=== PATIENT | female | born 1995 | race Caucasian/White ===

== ENCOUNTER → 2018-01-26 10:00 | Outpatient (CLI) | payer OTHER | END | disposition home or self-care (01) | LOC: RAD 10:00 | DX: M54.5 Low back pain (principal) ==

== ENCOUNTER 2018-02-09 08:53 | Outpatient (CLI) | payer OTHER | END 2018-02-09 19:03 | disposition home or self-care (01) | LOC: LAB 08:53 | DX: R73.09 Other abnormal glucose (principal); R10.84 Generalized abdominal pain; E03.8 Other specified hypothyroidism ==

== ENCOUNTER 2019-03-12 09:27 | Outpatient (CLI) | payer OTHER | END 2019-03-12 09:32 | disposition home or self-care (01) | LOC: LAB 09:27 | DX: J11.1 Influenza due to unidentified influenza virus with other respiratory manifestations (principal) ==

== ENCOUNTER 2020-06-06 10:40 | Outpatient (CLI) | payer OTHER | END 2020-06-06 15:00 | disposition home or self-care (01) | LOC: LAB 10:40 | PROVIDERS: ATTEND Internal Medicine Cardiovascular Disease | DX: E78.2 Mixed hyperlipidemia (principal); I10 Essential (primary) hypertension; E11.9 Type 2 diabetes mellitus without complications; E03.8 Other specified hypothyroidism ==

== ENCOUNTER 2020-07-20 13:31 | Outpatient (CLI) | payer OTHER | END 2020-07-20 13:33 | disposition home or self-care (01) | LOC: LAB 13:31 | PROVIDERS: ATTEND Internal Medicine Cardiovascular Disease | DX: R05 Cough (principal); R06.2 Wheezing; R50.9 Fever, unspecified ==

== ENCOUNTER 2021-03-11 08:00 | Outpatient (CLI) | payer OTHER | END 2021-03-11 08:30 | disposition home or self-care (01) | LOC: PPH VACUNA 08:00 | PROVIDERS: ATTEND Emergency Medicine Pediatric Emergency Medicine | DX: Z23 Encounter for immunization (principal) ==

== ENCOUNTER 2022-03-16 08:36 | Outpatient (CLI) | payer OTHER | END 2022-03-16 09:45 | disposition home or self-care (01) | LOC: PRENATAL 08:36 | PROVIDERS: ATTEND Obstetrics & Gynecology Maternal & Fetal Medicine | DX: Z76.1 Encounter for health supervision and care of foundling (principal) ==

== ENCOUNTER 2022-05-02 07:01 | Outpatient (CLI) | payer OTHER | END 2022-05-02 07:13 | disposition home or self-care (01) | LOC: LAB 07:01 | PROVIDERS: ATTEND Obstetrics & Gynecology | DX: O09.72 Supervision of high risk pregnancy due to social problems, second trimester (principal); E11.9 Type 2 diabetes mellitus without complications ==

== ENCOUNTER → 2022-05-18 06:05 | Outpatient (CLI) | payer OTHER | END | disposition home or self-care (01) | LOC: LAB 06:05 | PROVIDERS: ATTEND Obstetrics & Gynecology | DX: Z34.83 Encounter for supervision of other normal pregnancy, third trimester (principal) ==

== ENCOUNTER 2022-06-17 06:53 | Outpatient (CLI) | payer OTHER | END 2022-06-17 06:54 | disposition home or self-care (01) | LOC: LAB 06:53 | PROVIDERS: ATTEND Obstetrics & Gynecology Maternal & Fetal Medicine | DX: Z34.82 Encounter for supervision of other normal pregnancy, second trimester (principal) ==

== ENCOUNTER 2022-07-19 16:11 | Outpatient (CLI) | payer OTHER | END 2022-07-19 16:17 | disposition home or self-care (01) | LOC: LAB 16:11 | PROVIDERS: ATTEND Obstetrics & Gynecology | DX: O09.73 Supervision of high risk pregnancy due to social problems, third trimester (principal) ==

== ENCOUNTER 2022-12-26 10:23 | Emergency (ER) | payer OTHER ==
[~2022-12-26] VITALS: Ht 134.6 cm; Wt 74.4 kg
[2022-12-26 12:04] LABS: HEMATOCRIT 35.3 % (36.0-45.00); HEMOGLOBIN 12.4 g/dL (12.0-15.00); MEAN CELL VOLUME 85.2 fL (80.00-100.00); MEAN CORPUSCULAR HGB CONC 35.2 g/dl (32.0-36.0); PLATELET COUNT 275 K/uL (150-450); RED BLOOD COUNT 4.15 M/uL (4.00-6.00); RED CELL DISTRIBUTION WIDTH 13.2 % (11.5-14.5)
[2022-12-26] MEDS ORDERED: DUI500 PO (13:03)
[2022-12-26] MEDS ORDERED: MUPIROCIN15 GM TOP (13:03)
== END 2022-12-26 13:23 | disposition home or self-care (01) ==
LOC: ER 10:23
PROVIDERS: General Practice
DX: L02.416 Cutaneous abscess of left lower limb (principal)